=== PATIENT | male | born 1985 | race American Indian/Alaskan Native ===

== ENCOUNTER 2016-10-19 15:27 | Emergency (ER) | payer BC ==
[2016-10-19 15:27] VITALS: BMI 23.7
[2016-10-19 15:34] VITALS: BP 143/90; PULSE 90; RESP 18; TEMP 98.7; O2SAT 99
[2016-10-19 16:51] LABS: HEMOGLOBIN 14.3 g/dL (12.0-18.0); MEAN CELL VOLUME 86.7 fl (80.0-94.0); MEAN CORPUSCULAR HEMOGLOBIN 29.2 pg (27.0-31.0); MEAN CORPUSCULAR HGB CONC 33.7 g/dL (33.0-37.0); RBC 4.9 Mil/uL (4.40-5.90); RED CELL DISTRIBUTION WIDTH 13.4 % (11.5-14.5); WHITE BLOOD COUNT 4.4 K/uL (4.8-10.8)
[2016-10-19 17:35] LABS: ALB/GLOB RATIO 1.3 (1.0-2.1); ALBUMIN 4.3 g/dL (3.5-5.0); ALT/SGPT 67 U/L (21-72); AST/SGOT 27 U/L (17-59); BLOOD UREA NITROGEN 9 mg/dl (9-20); CALCIUM 9.2 mg/dL (8.4-10.2); GFR AFRICAN-AMERICAN > 60; GFR NON-AFRICAN AMERICAN > 60
--- NOTE | 2016-10-19 18:12 | ED PDOC ---
HPI: Allergic Reaction Time Seen by Provider: 10/19/16 15:32 Chief Complaint (Nursing): Allergic Reaction Chief Complaint (Provider): Sinus pressure, itchy watery eyes; SOB which has resolved Additional Complaint(s): Amber Henriquez, a 31 year old female, presents to the ED complaining of and episode shortness of breath, tingling and feelings of anxiety. The patient reports that he felt a bit anxious because he had nasal congestion and was unsure of what medicines to take. Patient has been seen in the ED several times over the past 8 months. The patient reports that while at work he inhaled ethyl acrylate. He states that after that he was cleared by his PMD and GI specialist but hasn't been back to work since because of other reasons. Past Medical History Reviewed: Historical Data, Nursing Documentation, Vital Signs Vital Signs: Last Vital Signs Temp 98.7 F 10/19/16 15:30 Pulse 90 10/19/16 15:30 Resp 18 10/19/16 15:30 BP 143/90 10/19/16 15:30 Pulse Ox 99 10/19/16 15:30 - Medical History PMH: Anxiety, Asthma, HTN Denies: Depression, Chronic Kidney Disease - Surgical History Surgical History: No Surg Hx - Family History Family History: States: Unknown Family Hx - Immunization History Hx Tetanus Toxoid Vaccination: No Hx Influenza Vaccination: No Hx Pneumococcal Vaccination: No - Home Medications Home Medications: Ambulatory Orders Medication Instructions Recorded Metoprolol Tartrate [Lopressor] 25 mg PO BID #60 tab 10/10/16 Pantoprazole [Protonix EC Tab] 40 mg PO 0600 #30 ect 10/10/16 Sertraline [Zoloft] 25 mg PO DAILY #30 tab 10/10/16 amLODIPine [Norvasc] 5 mg PO DAILY #30 tab 10/10/16 clonazePAM [Klonopin] 0.25 mg PO TID PRN #20 tab 10/10/16 - Allergies Allergies/Adverse Reactions: Allergies Allergy/AdvReac Type Severity Reaction Status Date / Time No Known Allergies Allergy Verified 10/11/16 12:47 Review of Systems Respiratory: Positive for: Shortness of Breath Psych: Positive for: Anxiety Physical Exam - Reviewed Nursing Documentation Reviewed: Yes Vital Signs Reviewed: Yes - Physical Exam Appears: Positive for: Non-toxic, No Acute Distress Head Exam: Positive for: ATRAUMATIC, NORMAL INSPECTION, NORMOCEPHALIC Skin: Positive for: Normal Color, Warm, Dry Eye Exam: Positive for: Normal appearance, EOMI, PERRL ENT: Positive for: Normal ENT Inspection Neck: Positive for: Normal, Painless ROM, Supple Cardiovascular/Chest: Positive for: Regular Rate, Rhythm, Chest Non Tender. Negative for: Tachycardia Respiratory: Positive for: Normal Breath Sounds. Negative for: Wheezing, Respiratory Distress Gastrointestinal/Abdominal: Positive for: Normal Exam, Bowel Sounds, Soft. Negative for: Tenderness, Guarding, Rebound Back: Positive for: Normal Inspection Extremity: Positive for: Normal ROM. Negative for: Tenderness, Pedal Edema, Deformity, Swelling Neurologic/Psych: Positive for: Alert, Oriented, Gait - Laboratory Results Result Diagrams: 10/19/16 16:45 10/19/16 16:45 - ECG O2 Sat by Pulse Oximetry: 99 (RA) Pulse Ox Interpretation: Normal - Progress ED Course And Treament: 1532 Initial Impression: 31 year old male presenting with shortness of breath and anxiety Initial PLan: * EKG * Comp Metabolic Panel * CBC * Xanax 0.25mg PO * Reevaluation Patient requested lab work because of abnormal liver function tests in the past. Scribe Attestation Documented by Kya Boykin acting as a scribe for Jannet Martinez PA-C. Scribe Attestation All medical record entries made by the Scribe were at my direction and personally dictated by me. I have reviewed the chart and agree that the record accurately reflects my personal performance of the history, physical exam, medical decision making, and the department course for this patient. I have also personally directed, reviewed, and agree with the discharge instructions and disposition. Disposition - Clinical Impression Clinical Impression: Seasonal allergies, Anxiety Counseled Patient/Family Regarding: Diagnosis, Need For Followup - Disposition Disposition: Routine/Home Disposition Time: 18:23 Condition: GOOD Instructions: Allergies (ED), Anxiety (ED)
--- NOTE | 2016-10-20 09:00 | CARD ---
APPROVED REPORT EKG Measurement Heart [id number] VT [id number] <Conclusion> Normal sinus rhythm Normal ECG
== END 2016-10-19 18:29 | disposition home or self-care (01) ==
LOC: H.ER 15:27
DX: F41.9 Anxiety disorder, unspecified (principal)